=== PATIENT | female | born 1940 | race Caucasian/White ===

== ENCOUNTER 2017-10-13 01:20 | Inpatient (IN) | payer OTHER ==
[~2017-10-13] VITALS: Ht 160 cm; Wt 77.3 kg
[~2017-10-13 01:20] MED LIST: ADVAIR 250/501 DISK IH; ADVAIR HFA120 INHALA IH; ADVIL200 MG PO; AMLODIPINE BESYL5 MG PO; BACTRIM,SEPT1 TABLET PO; BYSTOLIC10 MG PO; CLOPIDOGREL75 MG PO; DICYCLOMINE HCL20 MG PO; ENDOCET 5-3251 EACH PO; FLORASTOR250 MG PO; FUROSEMIDE40 MG PO; GLIPIZIDE5 MG PO; IMDUR30 MG PO; K-DUR20 MEQ PO; LASIX40 MG PO; LEVAQUIN500 MG PO; LISINOPRIL-HCT1 EACH PO; LISINOPRIL40 MG PO; MAXAIR AUTOHALE14 GM IH; METFORMIN HCL500 MG PO; METRONIDAZOLE500 MG PO; NASACORT AQ16.5 GM NS; NOVOLIN N100 UNITS/ SC; OMEPRAZOLE40 M1 PO; PLAVIX75 MG PO; PRAVASTATIN SOD20 MG PO; PRAVASTATIN SOD40 MG PO; VENTOLIN HFA18 GM IH; ZOFRAN ODT4 MG PO
[2017-10-13 02:00] LABS: BASOPHIL (%) 0.3 % (0-1); EOSINOPHIL (%) 0.3 % (0-5); HEMATOCRIT 44.8 % (36.0-46.0); IMMATURE GRANULOCYTE (%) 0.3 % (0.0-0.7); LYMPHOCYTE (%) 6.5 % (15-42); LYMPHOCYTE COUNT 0.5 K/uL (1.0-2.8); MCHC 34.6 G/DL (30.0-36.0); MONOCYTE (%) 3.2 % (3-12); MONOCYTE COUNT 0.2 K/uL (0-0.8); NEUTROPHIL (%) 89.4 % (45-76); NEUTROPHIL COUNT 6.5 K/uL (1.8-6.4); PLATELET COUNT 148 K/uL (156-360); RBC DIS.WIDTH-CV 12.5 % (11.8-14.6); RBC DIS.WIDTH-SD 36.8 % (39-53); RED BLOOD COUNT 5.53 M/uL (3.80-5.20); WHITE BLOOD COUNT 7.2 K/uL (4.1-10.2)
[2017-10-13 02:01] LABS: HEMOGLOBIN 15.5 G/DL (11.9-15.5)
[2017-10-13 02:09] LABS: ALBUMIN 4.2 g/dL (3.2-4.8); CHLORIDE 88 mEq/L (99-109); POTASSIUM 3.6 mEq/L (3.7-5.4)
[2017-10-13 02:12] LABS: TOTAL PROTEIN 7.8 g/dL (6.4-8.3)
[2017-10-13 02:13] LABS: TOTAL BILIRUBIN 0.8 mg/dL (0.0-1.0)
[2017-10-13 02:15] LABS: ALKALINE PHOSPHATASE 113 IU/L (3-129); CREATININE 1.9 mg/dL (0.6-1.3); GFR ESTIMATE (CALCULATED) 27 mL/min/
[2017-10-13 02:16] LABS: UREA NITROGEN (BUN) 25 mg/dL (9-23)
[2017-10-13 02:17] LABS: AST (GOT) 14 IU/L (2-34); DIRECT BILIRUBIN 0.3 mg/dL (0.0-0.3)
[2017-10-13 02:18] LABS: ALT (GPT) 16 IU/L (3-49)
[2017-10-13 02:19] LABS: LIPASE 41 U/L (1.0-51.0)
[2017-10-13 02:22] LABS: SODIUM 96 mEq/L (136-147); TROP-I INTERPRETATION NEGATIVE; TROPONIN-I 0.03 ng/mL (0.0-0.30)
[2017-10-13 02:23] LABS: GLUCOSE 445 mg/dL (70-99)
[2017-10-13 02:57] LABS: CREATINE KINASE 32 IU/L (1-294)
[2017-10-13 03:46] LABS: CHLORIDE 101 mEq/L (99-109); POTASSIUM 4.8 mEq/L (3.7-5.4); SODIUM 135 mEq/L (136-147)
[2017-10-13 03:52] LABS: CREATININE 1.9 mg/dL (0.6-1.3); GFR ESTIMATE (CALCULATED) 27 mL/min/; UREA NITROGEN (BUN) 25 mg/dL (9-23)
[2017-10-13 03:53] LABS: GLUCOSE 460 mg/dL (70-99)
[2017-10-13 03:56] LABS: APPEARANCE CLOUDY ((CLEAR)); BILIRUBIN NEGATIVE; BLOOD SMALL; COLOR YELLOW ((YELLOW)); GLUCOSE (STRIP) >=500; KETONES 5; LEUKOCYTES LARGE; NITRITE NEGATIVE; PROTEIN (STRIP) 100; SPECIFIC GRAVITY 1.024 (1.000-1.030); UROBILINOGEN 0.2 MG/DL (0.2-1.0)
[2017-10-13 04:14] LABS: BACTERIA 3+ /HPF; EPITHELIAL CELLS RARE /HPF; MUCUS NONE SEEN /LPF; UCUL ADDED? YES; WHITE BLOOD CELLS 20-30 /HPF (0-5)
[2017-10-13 05:51] VITALS: BP 180/78
[2017-10-13 07:20] VITALS: BP 173/78
[2017-10-13 11:52] VITALS: BP 152/70
[2017-10-13] MEDS ORDERED: ZYRTEC10 M3 PO (11:52)
[2017-10-13] MEDS ORDERED: GLUCOTROL5 MG PO (11:52)
[2017-10-13] MEDS ORDERED: TYLENOL EXTRA500 MG PO (11:53)
[2017-10-13] MEDS ORDERED: COREG3.125 M1 PO (11:53)
[2017-10-13] MEDS ORDERED: ZESTRIL40 MG PO (11:53)
[2017-10-13 15:35] VITALS: BP 153/72
[2017-10-13 19:10] VITALS: BP 153/70
[2017-10-14] VITALS (7 sets, daily range): BP systolic 123–140; BP diastolic 59–78
[2017-10-14 06:15] LABS: C DIFF TOXIN POSITIVE (NEGATIVE)
[2017-10-14 07:11] LABS: ALBUMIN 3.3 G/DL (3.2-4.8); ALKALINE PHOSPHATASE 66 IU/L (3-129); ALT (GPT) 11 IU/L (3-49); AST (GOT) 11 IU/L (2-34); CHLORIDE 101 MEQ/L (99-109); CREATININE 1.5 MG/DL (0.6-1.3); GFR ESTIMATE (CALCULATED) 36 mL/min/; GLUCOSE 202 mg/dL (70-99); POTASSIUM 3.6 MEQ/L (3.7-5.4); SODIUM 136 MEQ/L (136-147); TOTAL BILIRUBIN 0.7 MG/DL (0.0-1.0); TOTAL PROTEIN 5.8 G/DL (6.4-8.3); UREA NITROGEN (BUN) 23 mg/dL (9-23)
[2017-10-14 09:12] LABS: HEMATOCRIT 37.3 % (36.0-46.0); MCH 28.7 PG (29.0-34.0); MCV 84.2 FL (83-99); PLATELET COUNT 149 K/uL (156-360); RBC DIS.WIDTH-CV 13.2 % (11.8-14.6); RBC DIS.WIDTH-SD 40.5 % (39-53); WHITE BLOOD COUNT 5.1 K/uL (4.1-10.2)
[2017-10-14 09:34] LABS: HEMOGLOBIN 12.7 G/DL (11.9-15.5); RED BLOOD COUNT 4.43 M/uL (3.80-5.20)
[2017-10-15 03:50] VITALS: BP 125/78
[2017-10-15 08:10] VITALS: BP 134/74
[2017-10-15 12:00] VITALS: BP 140/70
[2017-10-15 15:40] VITALS: BP 136/68
[2017-10-15 20:18] VITALS: BP 177/82
[2017-10-16 00:07] VITALS: BP 168/78
[2017-10-16 06:20] LABS: ALBUMIN 3.2 G/DL (3.2-4.8); ALKALINE PHOSPHATASE 56 IU/L (3-129); ALT (GPT) 8 IU/L (3-49); AST (GOT) 10 IU/L (2-34); CHLORIDE 106 MEQ/L (99-109); CREATININE 1.1 MG/DL (0.6-1.3); GFR ESTIMATE (CALCULATED) 51 mL/min/; GLUCOSE 173 mg/dL (70-99); POTASSIUM 3.9 MEQ/L (3.7-5.4); SODIUM 135 MEQ/L (136-147); TOTAL BILIRUBIN 0.6 MG/DL (0.0-1.0); TOTAL PROTEIN 5.6 G/DL (6.4-8.3); UREA NITROGEN (BUN) 14 mg/dL (9-23)
[2017-10-16 08:52] VITALS: BP 170/80
[2017-10-16 15:53] VITALS: BP 150/59
[2017-10-17 00:07] VITALS: BP 186/84
[2017-10-17 06:00] LABS: HEMATOCRIT 35.7 % (36.0-46.0); HEMOGLOBIN 12.3 G/DL (11.9-15.5); MCH 28.2 PG (29.0-34.0); MCHC 34.5 G/DL (30.0-36.0); MCV 81.9 FL (83-99); PLATELET COUNT 170 K/uL (156-360); RBC DIS.WIDTH-CV 12.8 % (11.8-14.6); RBC DIS.WIDTH-SD 38.2 % (39-53); RED BLOOD COUNT 4.36 M/uL (3.80-5.20); WHITE BLOOD COUNT 6.8 K/uL (4.1-10.2)
[2017-10-17 06:32] LABS: ALBUMIN 2.9 G/DL (3.2-4.8); ALKALINE PHOSPHATASE 59 IU/L (3-129); ALT (GPT) 6 IU/L (3-49); AST (GOT) 9 IU/L (2-34); CHLORIDE 107 MEQ/L (99-109); CREATININE 1.1 MG/DL (0.6-1.3); GFR ESTIMATE (CALCULATED) 51 mL/min/; POTASSIUM 3.6 MEQ/L (3.7-5.4); SODIUM 134 MEQ/L (136-147); TOTAL BILIRUBIN 0.5 MG/DL (0.0-1.0); TOTAL PROTEIN 5.3 G/DL (6.4-8.3); UREA NITROGEN (BUN) 15 mg/dL (9-23)
[2017-10-17 06:33] LABS: GLUCOSE 106 mg/dL (70-99)
[2017-10-17 08:00] VITALS: BP 150/62
[2017-10-17 16:09] VITALS: BP 130/70
[2017-10-17 23:15] VITALS: BP 132/60
[2017-10-18 07:15] VITALS: BP 189/83
[2017-10-18 12:30] VITALS: BP 178/80
[2017-10-18 17:16] VITALS: BP 179/78
[2017-10-19 00:12] VITALS: BP 119/60
[2017-10-19 07:20] VITALS: BP 130/72
[2017-10-19 07:43] LABS: ALBUMIN 2.7 G/DL (3.2-4.8); ALKALINE PHOSPHATASE 57 IU/L (3-129); ALT (GPT) 8 IU/L (3-49); AST (GOT) 11 IU/L (2-34); CHLORIDE 108 MEQ/L (99-109); CREATININE 0.9 MG/DL (0.6-1.3); GFR ESTIMATE (CALCULATED) > 59 mL/min/; GLUCOSE 136 mg/dL (70-99); POTASSIUM 3.5 MEQ/L (3.7-5.4); SODIUM 136 MEQ/L (136-147); TOTAL BILIRUBIN 0.6 MG/DL (0.0-1.0); UREA NITROGEN (BUN) 18 mg/dL (9-23)
[2017-10-19 16:00] VITALS: BP 132/82
[2017-10-19 23:35] VITALS: BP 136/78
[2017-10-20 06:33] LABS: HEMATOCRIT 34.9 % (36.0-46.0); HEMOGLOBIN 12.4 G/DL (11.9-15.5); MCH 28.6 PG (29.0-34.0); MCHC 35.5 G/DL (30.0-36.0); MCV 80.4 FL (83-99); PLATELET COUNT 199 K/uL (156-360); RBC DIS.WIDTH-CV 12.8 % (11.8-14.6); RBC DIS.WIDTH-SD 37.1 % (39-53); RED BLOOD COUNT 4.34 M/uL (3.80-5.20); WHITE BLOOD COUNT 7.7 K/uL (4.1-10.2)
[2017-10-20 07:03] LABS: BASOPHIL (%) 0.3 % (0-1); EOSINOPHIL (%) 1.2 % (0-5); EOSINOPHIL COUNT 0.1 K/uL (0-0.3); IMMATURE GRANULOCYTE (%) 0.8 % (0.0-0.7); LYMPHOCYTE (%) 16.7 % (15-42); LYMPHOCYTE COUNT 1.3 K/uL (1.0-2.8); MONOCYTE COUNT 0.5 K/uL (0-0.8); NEUTROPHIL COUNT 5.8 K/uL (1.8-6.4)
[2017-10-20 07:07] LABS: CHLORIDE 108 MEQ/L (99-109); CREATININE 0.9 MG/DL (0.6-1.3); GFR ESTIMATE (CALCULATED) > 59 mL/min/; POTASSIUM 3.7 MEQ/L (3.7-5.4); SODIUM 137 MEQ/L (136-147); UREA NITROGEN (BUN) 15 mg/dL (9-23)
[2017-10-20 07:08] LABS: GLUCOSE 84 mg/dL (70-99)
[2017-10-20] MEDS ORDERED: NOVOLOG 10100 UNITS/ SC (08:15)
[2017-10-20] MEDS ORDERED: IMDUR30 MG PO (08:15)
[2017-10-20] MEDS ORDERED: AMLODIPINE BESY10 MG PO (08:15)
[2017-10-20] MEDS ORDERED: LEVEMIR100 UNIT/2 SC ×2 (08:15→14:47)
[2017-10-20] MEDS ORDERED: CLOPIDOGREL75 MG PO (08:15)
[2017-10-20 09:00] VITALS: BP 158/72
[2017-10-20] MEDS ORDERED: GLIPIZIDE5 MG PO (15:54)
== END 2017-10-20 16:49 | disposition home health service (06) | DRG 372 ==
LOC: EME 01:20 → EDOF 04:38 → 2EAST 04:38 → ENRESERV 04:58 → 2EAST 05:38
PROVIDERS: Family Medicine; Internal Medicine; Physician Assistant
DX: A04.72 Enterocolitis due to Clostridium difficile, not specified as recurrent (principal); N17.9 Acute kidney failure, unspecified; E86.0 Dehydration; E87.1 Hypo-osmolality and hyponatremia; E87.6 Hypokalemia; I12.9 Hypertensive chronic kidney disease with stage 1 through stage 4 chronic kidney disease, or unspecified chronic kidney disease; E11.22 Type 2 diabetes mellitus with diabetic chronic kidney disease; N18.3 Chronic kidney disease, stage 3 (moderate); E11.65 Type 2 diabetes mellitus with hyperglycemia; I25.5 Ischemic cardiomyopathy; K57.90 Diverticulosis of intestine, part unspecified, without perforation or abscess without bleeding; K21.9 Gastro-esophageal reflux disease without esophagitis; E78.5 Hyperlipidemia, unspecified; E03.9 Hypothyroidism, unspecified; Z91.19 Patient's noncompliance with other medical treatment and regimen; Z86.73 Personal history of transient ischemic attack (TIA), and cerebral infarction without residual deficits
CPT/HCPCS: 71045; 74176; 80048; 80048 91; 80053; 80076; 81003; 82550; 82948; 83036; 83605; 83690; 84484; 85025; 85027; 87040; 87077; 87086; 87186; 87493; 87506; 93005; 94640; 94640 76; 97530 GP; 99202; 99281; 99285; J0696; J1815; J2405; J7030

== ENCOUNTER 2018-01-28 17:41 | Emergency (ER) | payer OTHER ==
[~2018-01-28] VITALS: Ht 160 cm; Wt 72.3 kg
[~2018-01-28 17:41] MED LIST changes: +AMLODIPINE BESY10 MG PO; +COREG3.125 M1 PO; +GLUCOTROL5 MG PO; +LEVEMIR100 UNIT/2 SC; +NOVOLOG 10100 UNITS/ SC; +TYLENOL EXTRA500 MG PO; +ZESTRIL40 MG PO; +ZYRTEC10 M3 PO
[2018-01-28 19:47] VITALS: BP 183/60
== END 2018-01-28 19:47 | disposition home or self-care (01) ==
LOC: EME 17:41 → EXP 17:41
DX: S93.602A Unspecified sprain of left foot, initial encounter (principal); W07.XXXA Fall from chair, initial encounter; Z88.6 Allergy status to analgesic agent; Z88.5 Allergy status to narcotic agent
CPT/HCPCS: 73630; 99281; 99284